=== PATIENT | male | born 1995 | race Caucasian/White ===

== ENCOUNTER 2016-07-30 21:34 | Emergency (ER) | payer BC ==
[~2016-07-30] VITALS: Ht 180.3 cm; Wt 144.5 kg
[~2016-07-30 21:34] MED LIST: BENZ100C70 PO; CETI10CA PO; CYCL-319 PO; IBUP-1542 PO; nyquil
[2016-07-30 21:55] VITALS: Ht 180.3 cm; Wt 144.5 kg
[2016-07-31] MEDS ORDERED: DIPHTH/TET/ACEL PERTUSS (ADULT) 0.5 ML VIAL IM* ONE
--- NOTE | 2016-07-31 00:36 | ERD ---
ER Documentation Chief Complaint Date/Time DATE: 07/31/16 TIME: 00:36 Chief Complaint Laceration Right index finger HPI 20-year-old male presents with chief complaint of right index finger laceration 6 hours. Patient states that he cut himself with a blade and a construction class. Reports diffuse bleeding after injury, but since then bleeding has subsided. He denies history of diabetes. Currently rates his pain a 3 out of 10 in severity. Has not taken any medication for pain relief. Does not recall his last tetanus vaccine. He denies loss of range of motion, numbness, and tingling. ROS All systems reviewed and are negative except as per history of present illness. Medications Home Meds Active Scripts Bacitracin* (Bacitracin Zinc Oint*) 28.35 Gm Oint, 1 APPLIC TOP BID for 5 Days, TUB APPLI TO Prov:Deepika Kern PA-C 07/31/16 Ibuprofen* (Motrin*) 600 Mg Tab, 600 MG PO Q6, #30 TAB Prov:Deepika Kern PA-C 07/31/16 Ibuprofen* (Motrin*) 600 Mg Tab, 600 MG PO Q6H Y for PAIN AND OR ELEVATED TEMP, #30 TAB Prov:BOB MILLER NP 05/08/16 Benzonatate* (Tessalon Perle*) 100 Mg Capsule, 100 MG PO Q8H Y for COUGH, #20 CAP Prov:BOB MILLER NP 05/08/16 Cetirizine Hcl* (Zyrtec*) 10 Mg Capsule, 10 MG PO DAILY, #30 TAB.CHEW Prov:BOB MILLER NP 05/08/16 Cyclobenzaprine Hcl* (Cyclobenzaprine Hcl*) 10 Mg Tablet, 10 MG PO TID, #15 TAB Prov:DORIAN KRISHNAN PA-C 02/08/16 Ibuprofen* (Motrin*) 600 Mg Tab, 600 MG PO Q6H Y for PAIN AND OR ELEVATED TEMP, #30 TAB Prov:DORIAN KRISHNAN PA-C 02/08/16 Reported Medications [nyquil] Unknown Strength No Conflict Check 05/08/16 Allergies Allergies: Coded Allergies: No Known Allergy (Verified , 03/06/14) PMhx/Soc Medical and Surgical Hx: pt denies Medical Hx History of Surgery: Yes (Appendectomy) Anesthesia Reaction: No Hx Neurological Disorder: No Hx Respiratory Disorders: No Hx Cardiac Disorders: No Hx Psychiatric Problems: No Hx Miscellaneous Medical Probl: No Hx Alcohol Use: Yes (socially) Hx Substance Use: No Hx Tobacco Use: No Smoking Status: Never smoker Physical Exam Vitals Vital Signs Date Time Temp Pulse Resp B/P Pulse Ox O2 Delivery O2 Flow Rate FiO2 07/30/16 21:55 97.9 83 20 118/76 99 Physical Exam GENERAL: Non-toxic. No apparent signs of distress. LUNGS: Clear to auscultation. No accessory muscle use. No wheezing, no crackles. No signs or symptoms of respiratory distress. HEART: Regular rate and rhythm. No murmurs, clicks, rubs or gallops. 2+ radial pulses bilaterally. ABDOMEN: Soft, nontender and nondistended. Bowel sounds positive. No rebound or guarding. No gross peritoneal signs. No Tony or McBurney point tenderness. No gross masses. EXTREMITIES: No peripheral cyanosis or edema. Full range of motion in all extremities and hands. Full range of motion of fingers. Equal flying teacher strength bilaterally.. Good capillary refill. NEURO: The patient moves all 4 extremities with 5/5 strength. Cranial nerves are grossly intact. Normal mental status for age. Good muscle tone. SKIN: 1 cm laceration over right fourth digit, over DIP palmar surface. No active bleeding, no surrounding erythema or ecchymosis. There is no apparent rash, petechiae, erythema or swelling. Good skin turgor. Results 24 hrs Current Medications Medications (Trade) Dose Ordered Sig/Verónica Route PRN Reason Start Time Stop Time Status Last Admin Dose Admin Diphtheria/ Tetanus/Acell Pertussis (Adacel) 0.5 ml ONCE ONCE IM* 07/31/16 00:00 07/31/16 00:01 DC 07/31/16 00:12 Procedures/MDM Patient presented with laceration over right index finger, since injury bleeding has subsided. The laceration appears superficial, and with no active bleeding I explained that suture repair is not warranted at this time. Steri- Strips were applied to the finger after diffuse irrigation with normal saline. Patient tolerated procedure well, without pain. Given wound care instructions. Advised to follow-up with his PCP in 1-2 days. Patient's bleeding was easily controlled in the department and there is no indication of anemia. No evidence of compartment syndrome, neurologic injury, vascular injury, open joint, tendon laceration, or foreign body. Patient is appropriate for outpatient follow up. 48 hour wound check. Scar minimization instructions given. Departure Diagnosis: Primary Impression: Laceration Condition: Good Deepika Kern PA-C Jul 31, 2016 00:36
[2016-07-31] MEDS ORDERED: BAC30OI TOP (00:37)
[2016-07-31] MEDS ORDERED: IBUP-1542 PO (00:37)
== END 2016-07-31 01:01 | disposition home or self-care (01) ==
LOC: FTE 21:34
DX: S61.210A Laceration without foreign body of right index finger without damage to nail, initial encounter (principal); W26.8XXA Contact with other sharp object(s), not elsewhere classified, initial encounter; Y92.9 Unspecified place or not applicable; Z23 Encounter for immunization
CPT/HCPCS: 90471; 90715

== ENCOUNTER 2017-11-05 09:38 | Emergency (ER) | END 2017-11-05 10:30 | disposition home or self-care (01) ==

== ENCOUNTER 2017-11-19 22:01 | Emergency (ER) | END 2017-11-19 23:47 | disposition home or self-care (01) ==

== ENCOUNTER 2018-03-12 23:01 | Emergency (ER) | END 2018-03-13 02:08 | disposition home or self-care (01) ==

== ENCOUNTER 2018-08-25 07:20 | Emergency (ER) | payer BC ==
[~2018-08-25] VITALS: Ht 177.8 cm; Wt 139.9 kg
[~2018-08-25 07:20] MED LIST changes: +ALBU8.5H8 INH; +AMOX1TAB10 PO; +AMOX500C2 PO; +AZIT250T PO; +BACI28.34 TOP; +BENZ-6 PO; -BENZ100C70 PO; -CYCL-319 PO; +CYCL10TA7 PO; +IBUP800T48 PO; +PRED20TA PO
[2018-08-25 07:21] VITALS: BP 130/73; PULSE 80; RESP 18; Ht 177.8 cm; Wt 139.9 kg
[2018-08-25] MEDS ORDERED: PROM6.2515 PO (07:36)
[2018-08-25] MEDS ORDERED: BENZ-6 PO (07:36)
[2018-08-25] MEDS ORDERED: NAPR-985 PO (07:36)
--- NOTE | 2018-08-25 08:27 | ERD ---
ER Documentation Chief Complaint Chief Complaint C/O SORE THROAT X 3 DAYS HPI 22-year-old male presenting with sore throat times 3 days. Patient took NyQuil 4 hours prior to my evaluation. He states he has a mild headache with a dry cough and a runny nose. Patient has had diffuse body aches. Denies any chest pain or shortness of breath. Denies any changes in urination or bowel move. Denies medical problems. NKDA. Surgical history is appendectomy. Social history denies ROS All systems reviewed and are negative except as per history of present illness. Medications Home Meds Active Scripts Benzonatate* (Tessalon Perle*) 100 Mg Capsule, 100 MG PO Q8H PRN for COUGH, #30 CAP Prov:SNEHA VALERO PA-C 08/25/18 Promethazine Hcl* (Promethazine Hcl* Syrup) 6.25 Mg/5 Ml Syrup, 6.25 MG PO Q6H PRN for COUGH, #100 ML Prov:SNEHA VALERO PA-C 08/25/18 Naproxen* (Naprosyn*) 500 Mg Tablet, 500 MG PO BID PRN for PAIN AND/OR INFLAMMATION, #30 TAB Prov:SNEHA VALERO PA-C 08/25/18 Ibuprofen* (Motrin*) 600 Mg Tab, 600 MG PO Q6H PRN for PAIN AND OR ELEVATED TEMP, #30 TAB Prov:BOB MILLER NP 03/13/18 Benzonatate* (Tessalon Perle*) 100 Mg Capsule, 100 MG PO Q8H PRN for COUGH, #20 CAP Prov:BOB MILLER NP 03/13/18 Azithromycin* (Zithromax*) 250 Mg Tablet, 250 MG PO .ShivamPACK DIRECTED, #6 TAB TAKE 500 MG (2 TABS) THE FIRST DAY THEN 250 MG (1 TAB) DAYS 2-5 Prov:BOB MILLER NP 03/13/18 Ibuprofen* (Motrin*) 600 Mg Tab, 600 MG PO Q6, #30 TAB Prov:FL[place] MARIO PA-C 11/19/17 Amoxicillin* (Amoxicillin*) 500 Mg Cap, 500 MG PO TID for 10 Days, CAP Prov:FLOR[place] MARIO PA-C 11/19/17 Albuterol Sulfate* (Proair HFA*) 8.5 Gm Hfa.aer.ad, 2 PUFF INH Q4H PRN for WHEEZING AND SOB, #1 INHALER Prov:DIANA KNOX 11/05/17 Benzonatate* (Tessalon Perle*) 100 Mg Capsule, 100 MG PO Q8H PRN for COUGH, #20 CAP Prov:DIANA KNOX 11/05/17 Prednisone* (Prednisone*) 20 Mg Tab, 60 MG PO DAILY for 5 Days, TAB Prov:DIANA KNOX 11/05/17 Ibuprofen* (Motrin*) 800 Mg Tab, 800 MG PO Q6H PRN for PAIN AND OR ELEVATED TEMP, #30 TAB Prov:DIANA KNOX 11/05/17 Amoxicillin/Potassium Clav (Amox-Clav 875-125 mg Tablet) 875-125 mg Tab, 1 TAB PO BID for 10 Days, #20 TAB Prov:DIANA KNOX 11/05/17 Bacitracin* (Bacitracin Zinc Oint*) 28.35 Gm Oint, 1 APPLIC TOP BID for 5 Days, TUB APPLI TO Prov:Deepika Kern PA-C 07/31/16 Ibuprofen* (Motrin*) 600 Mg Tab, 600 MG PO Q6, #30 TAB Prov:Deepika Kern PA-C 07/31/16 Ibuprofen* (Motrin*) 600 Mg Tab, 600 MG PO Q6H PRN for PAIN AND OR ELEVATED TEMP, #30 TAB Prov:BOB MILLER NP 05/08/16 Benzonatate* (Tessalon Perle*) 100 Mg Capsule, 100 MG PO Q8H PRN for COUGH, #20 CAP Prov:BOB MILLER NP 05/08/16 Cetirizine Hcl* (Zyrtec*) 10 Mg Capsule, 10 MG PO DAILY, #30 TAB.CHEW Prov:BOB MILLER NP 05/08/16 Cyclobenzaprine Hcl* (Cyclobenzaprine Hcl*) 10 Mg Tablet, 10 MG PO TID, #15 TAB Prov:DORIAN KRISHNAN-C 02/08/16 Ibuprofen* (Motrin*) 600 Mg Tab, 600 MG PO Q6H PRN for PAIN AND OR ELEVATED TEMP, #30 TAB Prov:ARIELLADORIAN Loving PA-C 02/08/16 Reported Medications [nyquil] Unknown Strength No Conflict Check 05/08/16 Allergies Allergies: Coded Allergies: No Known Allergy (Verified , 11/05/17) PMhx/Soc History of Surgery: Yes (Appendectomy) Anesthesia Reaction: No Hx Neurological Disorder: No Hx Respiratory Disorders: No Hx Cardiac Disorders: No Hx Psychiatric Problems: No Hx Miscellaneous Medical Probl: No Hx Alcohol Use: No Hx Substance Use: Yes (MARIJUANA) Hx Tobacco Use: No Smoking Status: Former smoker FmHx Family History: No diabetes, No coronary disease, No other Physical Exam Vitals Vital Signs Date Temp Pulse Resp B/P (MAP) Pulse Ox O2 O2 Flow FiO2 Time Delivery Rate 08/25/18 97.0 80 18 130/73 99 07:21 (92) Physical Exam GENERAL: The patient is well-appearing, well-nourished, in no acute distress HEENT: Atraumatic. Conjunctivae are pink. Pupils equal, round, and reactive to light. There is no scleral icterus. Tympanic membranes clear bilaterally. Oropharynx clear. NECK: C-spine is soft and supple. There is no meningismus. There is no cervical lymphadenopathy. CHEST: Clear to auscultation bilaterally. There are no rales, wheezes or rhonchi. HEART: Regular rate and rhythm. No murmurs, clicks, rubs or gallops. Procedures/MDM MDM: 22-year-old male presenting with sore throat. Exam is non-concerning. Patient likely has viral pharyngitis. Patient is discharged with supportive medications. I have low suspicion for meningitis or sepsis. I have low suspicion for pneumonia. Patient is told if symptoms change or worsen to return immediately to the ER. All questions answered at discharge Departure Diagnosis: Primary Impression: Sore throat Condition: Stable Patient Instructions: Self-Care for Sore Throats Referrals: COMMUNITY CLINICS YOU HAVE RECEIVED A MEDICAL SCREENING EXAM AND THE RESULTS INDICATE THAT YOU DO NOT HAVE A CONDITION THAT REQUIRES URGENT TREATMENT IN THE EMERGENCY DEPARTMENT. FURTHER EVALUATION AND TREATMENT OF YOUR CONDITION CAN WAIT UNTIL YOU ARE SEEN IN YOUR DOCTORS OFFICE WITHIN THE NEXT 1-2 DAYS. IT IS YOUR RESPONSIBILITY TO MAKE AN APPOINTMENT FOR FOLOW-UP CARE. IF YOU HAVE A PRIMARY DOCTOR --you should call your primary doctor and schedule an appointment IF YOU DO NOT HAVE A PRIMARY DOCTOR YOU CAN CALL OUR PHYSICIAN REFERRAL HOTLINE AT IF YOU CAN NOT AFFORD TO SEE A PHYSICIAN YOU CAN CHOSE FROM THE FOLLOWING [facility] [address] [facility] [address] [facility] (RCDb) [facility]. [facility] [place] [address] [facility] [address] [facility] [address] [facility]. [facility]. [address] Additional Instructions: FOLLOW UP WITH YOUR PRIMARY CARE PHYSICIAN TOMORROW.Return to this facility if you are not improving as expected. SNEHA VALERO PA-C Aug 25, 2018 08:27
== END 2018-08-25 08:23 | disposition home or self-care (01) ==
LOC: FTE 07:20
DX: J02.9 Acute pharyngitis, unspecified (principal); Z87.891 Personal history of nicotine dependence
CPT/HCPCS: 99283

== ENCOUNTER 2018-09-30 08:34 | Emergency (ER) | payer BC ==
[~2018-09-30] VITALS: Ht 180.3 cm; Wt 150.0 kg
[~2018-09-30 08:34] MED LIST changes: +NAPR-985 PO; +PROM6.2515 PO
[2018-09-30 08:36] VITALS: BP 138/72; PULSE 90; RESP 18; Ht 180.3 cm; Wt 150.0 kg
--- NOTE | 2018-09-30 09:28 | ERD ---
ER Documentation Chief Complaint Chief Complaint METAL OBJECT FEEL ON TOP HEAD ,HAS ABRASION, WANTS DT HPI 3-year-old male presenting with abrasion to the top of his head. 2 days ago patient had a labile burst on his head and he sustained a small abrasion. Patient is not up-to-date on his tetanus and is requesting tetanus at this time. He denies any vomiting. Denies any headaches. Denies any bleeding at the site. Denies medical problems. NKDA. Surgical history denies. Social history denies ROS All systems reviewed and are negative except as per history of present illness. Medications Home Meds Active Scripts Benzonatate* (Tessalon Perle*) 100 Mg Capsule, 100 MG PO Q8H PRN for COUGH, #30 CAP Prov:SNEHA VALERO PA-C 08/25/18 Promethazine Hcl* (Promethazine Hcl* Syrup) 6.25 Mg/5 Ml Syrup, 6.25 MG PO Q6H PRN for COUGH, #100 ML Prov:SNEHA VALERO PA-C 08/25/18 Naproxen* (Naprosyn*) 500 Mg Tablet, 500 MG PO BID PRN for PAIN AND/OR INFLAMMATION, #30 TAB Prov:SNEHA VALERO PA-C 08/25/18 Ibuprofen* (Motrin*) 600 Mg Tab, 600 MG PO Q6H PRN for PAIN AND OR ELEVATED TEMP, #30 TAB Prov:BOB MILLER NP 03/13/18 Benzonatate* (Tessalon Perle*) 100 Mg Capsule, 100 MG PO Q8H PRN for COUGH, #20 CAP Prov:BOB MILLER NP 03/13/18 Azithromycin* (Zithromax*) 250 Mg Tablet, 250 MG PO .ShivamPACK DIRECTED, #6 TAB TAKE 500 MG (2 TABS) THE FIRST DAY THEN 250 MG (1 TAB) DAYS 2-5 Prov:BOB MILLER NP 03/13/18 Ibuprofen* (Motrin*) 600 Mg Tab, 600 MG PO Q6, #30 TAB Prov:FLOR[place] MARIO PA-C 11/19/17 Amoxicillin* (Amoxicillin*) 500 Mg Cap, 500 MG PO TID for 10 Days, CAP Prov:FL[place] MARIOC 11/19/17 Albuterol Sulfate* (Proair HFA*) 8.5 Gm Hfa.aer.ad, 2 PUFF INH Q4H PRN for WHEEZING AND SOB, #1 INHALER Prov:DIANA KNOX 11/05/17 Benzonatate* (Tessalon Perle*) 100 Mg Capsule, 100 MG PO Q8H PRN for COUGH, #20 CAP Prov:DIANA KNOX 11/05/17 Prednisone* (Prednisone*) 20 Mg Tab, 60 MG PO DAILY for 5 Days, TAB Prov:DIANA KNOX 11/05/17 Ibuprofen* (Motrin*) 800 Mg Tab, 800 MG PO Q6H PRN for PAIN AND OR ELEVATED TEMP, #30 TAB Prov:DIANA KNOX 11/05/17 Amoxicillin/Potassium Clav (Amox-Clav 875-125 mg Tablet) 875-125 mg Tab, 1 TAB PO BID for 10 Days, #20 TAB Prov:DIANA KNOX 11/05/17 Bacitracin* (Bacitracin Zinc Oint*) 28.35 Gm Oint, 1 APPLIC TOP BID for 5 Days, TUB APPLI TO Prov:Deepika Kern PA-C 07/31/16 Ibuprofen* (Motrin*) 600 Mg Tab, 600 MG PO Q6, #30 TAB Prov:Deepika Kern PA-C 07/31/16 Ibuprofen* (Motrin*) 600 Mg Tab, 600 MG PO Q6H PRN for PAIN AND OR ELEVATED TEMP, #30 TAB Prov:BOB MILLER NP 05/08/16 Benzonatate* (Tessalon Perle*) 100 Mg Capsule, 100 MG PO Q8H PRN for COUGH, #20 CAP Prov:BOB MILLER NP 05/08/16 Cetirizine Hcl* (Zyrtec*) 10 Mg Capsule, 10 MG PO DAILY, #30 TAB.CHEW Prov:BOB MILLER NP 05/08/16 Cyclobenzaprine Hcl* (Cyclobenzaprine Hcl*) 10 Mg Tablet, 10 MG PO TID, #15 TAB Prov:BLAKE KRISHNANSHA N. PA-C 02/08/16 Ibuprofen* (Motrin*) 600 Mg Tab, 600 MG PO Q6H PRN for PAIN AND OR ELEVATED TEMP, #30 TAB Prov:DORIAN KRISHNAN Inder GARNER 02/08/16 Reported Medications [nyquil] Unknown Strength No Conflict Check 05/08/16 Allergies Allergies: Coded Allergies: No Known Allergy (Verified , 11/05/17) PMhx/Soc Medical and Surgical Hx: pt denies Medical Hx, pt denies Surgical Hx History of Surgery: Yes (Appendectomy) Anesthesia Reaction: No Hx Neurological Disorder: No Hx Respiratory Disorders: No Hx Cardiac Disorders: No Hx Psychiatric Problems: No Hx Miscellaneous Medical Probl: No Hx Alcohol Use: No Hx Substance Use: No Hx Tobacco Use: No Smoking Status: Never smoker FmHx Family History: No diabetes, No coronary disease, No other Physical Exam Vitals Vital Signs Date Temp Pulse Resp B/P (MAP) Pulse Ox O2 O2 Flow FiO2 Time Delivery Rate 09/30/18 98.1 90 18 138/72 99 08:36 (94) Physical Exam GENERAL: The patient is well-appearing, well-nourished, in no acute distress HEENT: Atraumatic. Conjunctivae are pink. Pupils equal, round, and reactive to light. There is no scleral icterus. Tympanic membranes clear bilaterally. Oropharynx clear. CHEST: Clear to auscultation bilaterally. There are no rales, wheezes or rhonchi. HEART: Regular rate and rhythm. No murmurs, clicks, rubs or gallops. No S3 or S4. NEUROLOGIC: Alert and oriented. Cranial nerves II through XII intact. Motor strength in all 4 extremities with 5 out of 5 strength. Sensation grossly intact. Normal speech and gait. Babinski negative. DTR 2+ throughout. SKIN: Healed abrasion noted to the top of the head. No surrounding erythema. Results 24 hrs Current Medications Medications Dose Sig/Verónica Start Time Status Last (Trade) Ordered Route PRN Stop Time Admin Dose Reason Admin Diphtheria/ 0.5 ml ONCE ONCE 09/30/18 09/30/18 Tetanus/Acell IM* 09:30 09:20 Pertussis 09/30/18 09:31 (Adacel) Procedures/MDM ER course: Tetanus given in ED. MDM: 23-year-old male presenting with abrasions that is healed. Patient is requesting tetanus shot. I have low suspicion for cellulitic infection. I have low suspicion for neuro deficit. Patient is discharged with strict told to follow-up with primary care within 1 to 2 days for close evaluation. Patient is told symptoms change or worsen to return immediately to the ER. All questions answered at discharge Departure Diagnosis: Primary Impression: Abrasion Condition: Stable Patient Instructions: Abrasion Referrals: [facility] CLINICS YOU HAVE RECEIVED A MEDICAL SCREENING EXAM AND THE RESULTS INDICATE THAT YOU DO NOT HAVE A CONDITION THAT REQUIRES URGENT TREATMENT IN THE EMERGENCY DEPARTMENT. FURTHER EVALUATION AND TREATMENT OF YOUR CONDITION CAN WAIT UNTIL YOU ARE SEEN IN YOUR DOCTORS OFFICE WITHIN THE NEXT 1-2 DAYS. IT IS YOUR RESPONSIBILITY TO MAKE AN APPOINTMENT FOR FOLOW-UP CARE. IF YOU HAVE A PRIMARY DOCTOR --you should call your primary doctor and schedule an appointment IF YOU DO NOT HAVE A PRIMARY DOCTOR YOU CAN CALL OUR PHYSICIAN REFERRAL HOTLINE AT IF YOU CAN NOT AFFORD TO SEE A PHYSICIAN YOU CAN CHOSE FROM THE FOLLOWING [facility] CLINICS [facility] [address] [facility]. [facility] [address] [facility] [address] [facility] [facility] [address] [facility] [address] [facility]. [address] Additional Instructions: FOLLOW UP WITH YOUR PRIMARY CARE PHYSICIAN TOMORROW.Return to this facility if you are not improving as expected. SNEHA VALERO PA-C September 30, 2018 09:28
[2018-09-30] MEDS ORDERED: DIPHTH/TET/ACEL PERTUSS (ADULT) 0.5 ML VIAL IM* ONE (09:30)
== END 2018-09-30 10:11 | disposition home or self-care (01) ==
LOC: FTE 08:34
DX: S00.81XA Abrasion of other part of head, initial encounter (principal); W20.8XXA Other cause of strike by thrown, projected or falling object, initial encounter; Y92.89 Other specified places as the place of occurrence of the external cause; Z23 Encounter for immunization
CPT/HCPCS: 90471; 90715

== ENCOUNTER 2018-12-05 09:37 | Emergency (ER) | payer BC ==
[~2018-12-05] VITALS: Ht 180.3 cm; Wt 149.0 kg
[~2018-12-05 09:37] MED LIST changes: +ACET500C5 PO; +PENI500T PO
[2018-12-05 09:38] VITALS: BP 118/75; PULSE 92; RESP 22; Ht 180.3 cm; Wt 149.0 kg
[2018-12-05] MEDS ORDERED: ACETAMINOPHEN 500 MG TAB PO STA (09:51)
[2018-12-05] MEDS ORDERED: IBUPROFEN 800 MG TAB PO ONE (10:00)
--- NOTE | 2018-12-05 10:52 | ERD ---
ER Documentation Chief Complaint Chief Complaint SORE THROAT, COUGH, BODY PAINS HPI 23-year-old male presenting with a sore throat body aches and fever x3 days. Patient states he feels mildly dizzy and has had one episode of vomiting with nausea. Has diffuse body aches and took NyQuil last night with no medications today. Has a dry cough but no runny nose. Denies diarrhea. Denies medical problems. NKDA. Surgical history appendectomy. Social history smokes marijuana occasionally ROS All systems reviewed and are negative except as per history of present illness. Medications Home Meds Active Scripts Acetaminophen* (Tylophen*) 500 Mg Capsule, 1 CAP PO Q6H PRN for PAIN AND OR ELEVATED TEMP, #20 CAP Prov:SNEHA VALERO PA-C 12/05/18 Ibuprofen* (Motrin*) 800 Mg Tab, 800 MG PO Q6, #30 TAB Prov:SNEHA VALERO PA-C 12/05/18 Penicillin V Potassium* (Penicillin V K*) 500 Mg Tab, 500 MG PO BID for 7 Days, TAB Prov:SNEHA VALERO PA-C 12/05/18 Benzonatate* (Tessalon Perle*) 100 Mg Capsule, 100 MG PO Q8H PRN for COUGH, #30 CAP Prov:SNEHA VALERO PA-C 08/25/18 Promethazine Hcl* (Promethazine Hcl* Syrup) 6.25 Mg/5 Ml Syrup, 6.25 MG PO Q6H PRN for COUGH, #100 ML Prov:SNEHA VALERO PA-C 08/25/18 Naproxen* (Naprosyn*) 500 Mg Tablet, 500 MG PO BID PRN for PAIN AND/OR INFLAMMATION, #30 TAB Prov:SNEHA VALERO PA-C 08/25/18 Ibuprofen* (Motrin*) 600 Mg Tab, 600 MG PO Q6H PRN for PAIN AND OR ELEVATED TEMP, #30 TAB Prov:BOB MILLER NP 03/13/18 Benzonatate* (Tessalon Perle*) 100 Mg Capsule, 100 MG PO Q8H PRN for COUGH, #20 CAP Prov:BOB MILLER NP 03/13/18 Azithromycin* (Zithromax*) 250 Mg Tablet, 250 MG PO .BARAK DIRECTED, #6 TAB TAKE 500 MG (2 TABS) THE FIRST DAY THEN 250 MG (1 TAB) DAYS 2-5 Prov:BOB MILLER NP 03/13/18 Ibuprofen* (Motrin*) 600 Mg Tab, 600 MG PO Q6, #30 TAB Prov:FLOR[place] MARIO PA-C 11/19/17 Amoxicillin* (Amoxicillin*) 500 Mg Cap, 500 MG PO TID for 10 Days, CAP Prov:[place] MARIOC 11/19/17 Albuterol Sulfate* (Proair HFA*) 8.5 Gm Hfa.aer.ad, 2 PUFF INH Q4H PRN for WHEEZING AND SOB, #1 INHALER Prov:ABILIODIANA F 11/05/17 Benzonatate* (Tessalon Perle*) 100 Mg Capsule, 100 MG PO Q8H PRN for COUGH, #20 CAP Prov:DIANA KNOX F 11/05/17 Prednisone* (Prednisone*) 20 Mg Tab, 60 MG PO DAILY for 5 Days, TAB Prov:DIANA KNOX F 11/05/17 Ibuprofen* (Motrin*) 800 Mg Tab, 800 MG PO Q6H PRN for PAIN AND OR ELEVATED TEMP, #30 TAB Prov:ZAYRAKISHANDIANA F 11/05/17 Amoxicillin/Potassium Clav (Amox-Clav 875-125 mg Tablet) 875-125 mg Tab, 1 TAB PO BID for 10 Days, #20 TAB Prov:ABILIOALONDRABRANDON F 11/05/17 Bacitracin* (Bacitracin Zinc Oint*) 28.35 Gm Oint, 1 APPLIC TOP BID for 5 Days, TUB APPLI TO Prov:Deepika Kern PA-C 07/31/16 Ibuprofen* (Motrin*) 600 Mg Tab, 600 MG PO Q6, #30 TAB Prov:Deepika Kern PA-C 07/31/16 Ibuprofen* (Motrin*) 600 Mg Tab, 600 MG PO Q6H PRN for PAIN AND OR ELEVATED TEMP, #30 TAB Prov:BOB MILLER NP 05/08/16 Benzonatate* (Tessalon Perle*) 100 Mg Capsule, 100 MG PO Q8H PRN for COUGH, #20 CAP Prov:ANGELABOB FOUNDRY HAND 05/08/16 Cetirizine Hcl* (Zyrtec*) 10 Mg Capsule, 10 MG PO DAILY, #30 TAB.CHEW Prov:ANGELABOB FOUNDRY HAND 05/08/16 Cyclobenzaprine Hcl* (Cyclobenzaprine Hcl*) 10 Mg Tablet, 10 MG PO TID, #15 TAB Prov:DORIAN KRISHNAN PA-C 02/08/16 Ibuprofen* (Motrin*) 600 Mg Tab, 600 MG PO Q6H PRN for PAIN AND OR ELEVATED TEMP, #30 TAB Prov:DORIAN KRISHNAN PA-C 02/08/16 Reported Medications [nyquil] Unknown Strength No Conflict Check 05/08/16 Allergies Allergies: Coded Allergies: No Known Allergy (Verified , 12/05/18) PMhx/Soc History of Surgery: Yes (Appendectomy) Anesthesia Reaction: No Hx Neurological Disorder: No Hx Respiratory Disorders: No Hx Cardiac Disorders: No Hx Psychiatric Problems: No Hx Miscellaneous Medical Probl: No Hx Alcohol Use: No Hx Substance Use: Yes (marijuana) Hx Tobacco Use: No Smoking Status: Never smoker FmHx Family History: No diabetes, No coronary disease, No other Physical Exam Vitals Vital Signs Date Temp Pulse Resp B/P (MAP) Pulse Ox O2 O2 Flow FiO2 Time Delivery Rate 12/05/18 100.8 92 22 118/75 100 09:38 (89) Physical Exam GENERAL: The patient is well-appearing, well-nourished, in no acute distress HEENT: Atraumatic. Conjunctivae are pink. Pupils equal, round, and reactive to light. There is no scleral icterus. Tympanic membranes clear bilaterally. Oropharynx erythematous with exudate noted bilaterally. NECK: C-spine is soft and supple. There is no meningismus. There is no cervical lymphadenopathy. CHEST: Clear to auscultation bilaterally. There are no rales, wheezes or rhonchi. HEART: Regular rate and rhythm. No murmurs, clicks, rubs or gallops. Results 24 hrs Laboratory Tests Test 12/05/18 09:56 Monoscreen Negative Current Medications Medications Dose Sig/Verónica Start Time Status Last (Trade) Ordered Route PRN Stop Time Admin Dose Reason Admin Ibuprofen 800 mg ONCE ONCE 12/05/18 DC 12/05/18 (Motrin) PO 10:00 10:01 12/05/18 10:01 1,000 mg ONCE STAT 12/05/18 DC 12/05/18 Acetaminophen PO 09:51 10:01 (Tylenol 12/05/18 09:52 Tab) Procedures/MDM ER course: Shelby negative, flu negative, strep positive. Ibuprofen and Tylenol given in ED MDM: 23-year-old male presenting with sore throat. I have low suspicion for peritonsillar retropharyngeal abscess. I have low suspicion for pneumonia. I have low suspicion for meningitis or sepsis. Patient is discharged with medications and told to follow-up with primary care within 1 to 2 days for close evaluation. Patient is told if symptoms change or worsen to return immediately to the ER. All questions answered at discharge Departure Diagnosis: Primary Impression: Strep pharyngitis Condition: Stable Patient Instructions: Strep Throat Referrals: [facility]ICS YOU HAVE RECEIVED A MEDICAL SCREENING EXAM AND THE RESULTS INDICATE THAT YOU DO NOT HAVE A CONDITION THAT REQUIRES URGENT TREATMENT IN THE EMERGENCY DEPARTMENT. FURTHER EVALUATION AND TREATMENT OF YOUR CONDITION CAN WAIT UNTIL YOU ARE SEEN IN YOUR DOCTORS OFFICE WITHIN THE NEXT 1-2 DAYS. IT IS YOUR RESPONSIBILITY TO MAKE AN APPOINTMENT FOR FOLOW-UP CARE. IF YOU HAVE A PRIMARY DOCTOR --you should call your primary doctor and schedule an appointment IF YOU DO NOT HAVE A PRIMARY DOCTOR YOU CAN CALL OUR PHYSICIAN REFERRAL HOTLINE AT IF YOU CAN NOT AFFORD TO SEE A PHYSICIAN YOU CAN CHOSE FROM THE FOLLOWING [facility] [address] [facility] [address] [facility]. [facility] [address] [facility] [facility] [address] [facility] [address] [facility]. [address] [place] Additional Instructions: FOLLOW UP WITH YOUR PRIMARY CARE PHYSICIAN TOMORROW.Return to this facility if you are not improving as expected. SNEHA VALERO PA-C Dec 05, 2018 10:52
== END 2018-12-05 11:02 | disposition home or self-care (01) ==
LOC: FTE 09:37
DX: J02.0 Streptococcal pharyngitis (principal)
CPT/HCPCS: 86308; 87400; 87880; 99283

== ENCOUNTER 2018-12-06 21:21 | Emergency (ER) | payer BC ==
[~2018-12-06] VITALS: Ht 177.8 cm; Wt 148.6 kg
[2018-12-06 21:23] VITALS: Ht 177.8 cm; Wt 148.6 kg
[2018-12-06] MEDS ORDERED: SOD CHLORIDE 0.9% 1,000 ML IV STA (22:03)
[2018-12-06] MEDS ORDERED: KETOROLAC 15 MG INJ IV STA (22:03)
--- NOTE | 2018-12-06 22:06 | ERD ---
ER Documentation Chief Complaint Chief Complaint FEVER, STARTED FEELING DIZZY; ON ATBs-PCN for Strep Throat (Rx yesterday) HPI 23-year-old male presents to the ED with a 3-day history of fevers and odynophagia. He was seen in the ED yesterday diagnosed with strep pharyngitis and discharged on penicillin. Patient states he has not improved, has ongoing odynophagia, high fevers , feels dizzy and lightheaded. Denies any dysphasia, vocal changes or trismus. No shortness of breath or cough. No headache or neck pain. No abdominal pain, nausea or vomiting. ROS All systems reviewed and are negative except as per history of present illness. Medications Home Meds Active Scripts Acetaminophen* (Tylophen*) 500 Mg Capsule, 1 CAP PO Q6H PRN for PAIN AND OR ELEVATED TEMP, #20 CAP Prov:SNEHA VALERO PA-C 12/05/18 Ibuprofen* (Motrin*) 800 Mg Tab, 800 MG PO Q6, #30 TAB Prov:SNEHA VALERO PA-C 12/05/18 Penicillin V Potassium* (Penicillin V K*) 500 Mg Tab, 500 MG PO BID for 7 Days, TAB Prov:SNEHA VALERO PA-C 12/05/18 Benzonatate* (Tessalon Perle*) 100 Mg Capsule, 100 MG PO Q8H PRN for COUGH, #30 CAP Prov:SNEHA VALERO PA-C 08/25/18 Promethazine Hcl* (Promethazine Hcl* Syrup) 6.25 Mg/5 Ml Syrup, 6.25 MG PO Q6H PRN for COUGH, #100 ML Prov:SNEHA VALERO PA-C 08/25/18 Naproxen* (Naprosyn*) 500 Mg Tablet, 500 MG PO BID PRN for PAIN AND/OR INFLAMMATION, #30 TAB Prov:SNEHA VALERO PA-C 08/25/18 Ibuprofen* (Motrin*) 600 Mg Tab, 600 MG PO Q6H PRN for PAIN AND OR ELEVATED TEMP, #30 TAB Prov:BOB MILLER NP 03/13/18 Benzonatate* (Tessalon Perle*) 100 Mg Capsule, 100 MG PO Q8H PRN for COUGH, #20 CAP Prov:BOB MILLER BUSINESS PERFORMANCE MANAGER 03/13/18 Azithromycin* (Zithromax*) 250 Mg Tablet, 250 MG PO .VIKKICK DIRECTED, #6 TAB TAKE 500 MG (2 TABS) THE FIRST DAY THEN 250 MG (1 TAB) DAYS 2-5 Prov:BOB MILLER BUSINESS PERFORMANCE MANAGER 03/13/18 Ibuprofen* (Motrin*) 600 Mg Tab, 600 MG PO Q6, #30 TAB Prov:[place] MARIO PA-C 11/19/17 Amoxicillin* (Amoxicillin*) 500 Mg Cap, 500 MG PO TID for 10 Days, CAP Prov:[place] MARIO PA-C 11/19/17 Albuterol Sulfate* (Proair HFA*) 8.5 Gm Hfa.aer.ad, 2 PUFF INH Q4H PRN for WHEEZING AND SOB, #1 INHALER Prov:DIANA KNOX 11/05/17 Benzonatate* (Tessalon Perle*) 100 Mg Capsule, 100 MG PO Q8H PRN for COUGH, #20 CAP Prov:DIANA KNOX 11/05/17 Prednisone* (Prednisone*) 20 Mg Tab, 60 MG PO DAILY for 5 Days, TAB Prov:DIANA KNOX 11/05/17 Ibuprofen* (Motrin*) 800 Mg Tab, 800 MG PO Q6H PRN for PAIN AND OR ELEVATED TEMP, #30 TAB Prov:DIANA KNOX 11/05/17 Amoxicillin/Potassium Clav (Amox-Clav 875-125 mg Tablet) 875-125 mg Tab, 1 TAB PO BID for 10 Days, #20 TAB Prov:DIANA KNOX F 11/05/17 Bacitracin* (Bacitracin Zinc Oint*) 28.35 Gm Oint, 1 APPLIC TOP BID for 5 Days, TUB APPLI TO Prov:Deepika Kern PA-C 07/31/16 Ibuprofen* (Motrin*) 600 Mg Tab, 600 MG PO Q6, #30 TAB Prov:Deepika Kern PA-C 07/31/16 Ibuprofen* (Motrin*) 600 Mg Tab, 600 MG PO Q6H PRN for PAIN AND OR ELEVATED TEMP, #30 TAB Prov:ANGELABOB BUSINESS PERFORMANCE MANAGER 05/08/16 Benzonatate* (Tessalon Perle*) 100 Mg Capsule, 100 MG PO Q8H PRN for COUGH, #20 CAP Prov:ANGELABOBSohail Brown. BUSINESS PERFORMANCE MANAGER 05/08/16 Cetirizine Hcl* (Zyrtec*) 10 Mg Capsule, 10 MG PO DAILY, #30 TAB.CHEW Prov:BOB MILLER BUSINESS PERFORMANCE MANAGER 05/08/16 Cyclobenzaprine Hcl* (Cyclobenzaprine Hcl*) 10 Mg Tablet, 10 MG PO TID, #15 TAB Prov:DORIAN KRISHNAN PA-C 02/08/16 Ibuprofen* (Motrin*) 600 Mg Tab, 600 MG PO Q6H PRN for PAIN AND OR ELEVATED TEMP, #30 TAB Prov:DORIAN KRISHNAN PA-C 02/08/16 Reported Medications [nyquil] Unknown Strength No Conflict Check 05/08/16 Allergies Allergies: Coded Allergies: No Known Allergy (Verified , 12/05/18) PMhx/Soc Reviewed History of Surgery: Yes (Appendectomy) Anesthesia Reaction: No Hx Neurological Disorder: No Hx Respiratory Disorders: No Hx Cardiac Disorders: No Hx Psychiatric Problems: No Hx Miscellaneous Medical Probl: Yes (STREP THROAT) Hx Alcohol Use: No Hx Substance Use: Yes (marijuana) Hx Tobacco Use: No Smoking Status: Never smoker FmHx No family history relevant to presenting complaint Physical Exam Vitals Vital Signs Date Temp Pulse Resp B/P (MAP) Pulse Ox O2 O2 Flow FiO2 Time Delivery Rate 12/06/18 92 18 120/61 98 23:21 (80) 12/06/18 102.0 124 20 127/75 97 21:23 (92) Physical Exam Const: Moderate distress Head: Atraumatic Eyes: Normal Conjunctiva ENT: Pharynx is injected with purulent exudate. Uvula is midline. No trismus. Tolerating his own secretions. No drooling. Neck: Full range of motion. No meningismus. Mild, bilateral, tender lymphadenopathy. No stridor. Resp: Breath sounds are equal and clear to auscultation bilaterally. No wheezing Cardio: Tachycardic. Regular rate and rhythm, no murmurs Abd: Soft, obese, non tender, non distended. Normal bowel sounds Skin: No petechiae or rashes Back: No midline or flank tenderness Ext: No cyanosis, or edema Neur: Awake and alert. No focal deficit Psych: Normal Mood and Affect Results 24 hrs Laboratory Tests Test 12/06/18 21:50 POC Venous Lactate 1.2 mmol/L Current Medications Medications Dose Sig/Verónica Start Time Status Last (Trade) Ordered Route PRN Stop Time Admin Dose Reason Admin Sodium 1,000 ml @ Q1H STAT 12/06/18 DC 12/06/18 Chloride 1,000 mls/hr IV 22:03 22:21 12/06/18 23:02 8 mg ONCE ONCE 12/06/18 DC 12/06/18 Dexamethasone IV 22:30 22:21 (Decadron) 12/06/18 22:31 Ketorolac 15 mg ONCE STAT 12/06/18 DC 12/06/18 Tromethamine IV 22:03 22:22 (Toradol) 12/06/18 22:06 Penicillin 1,200,000 ONCE ONCE 12/06/18 DC 12/06/18 G units IM 22:30 22:48 Benzathine 12/06/18 22:31 (Bicillin La) Procedures/MDM DOCUMENTS REVIEWED: ED nurse, prior records including yesterday's visit and culture results. MEDICAL DECISION MAKIN-year-old male presents to the ED with a 3-day history of fevers and odynophagia. Patient presents with odynophagia secondary to culture positive strep pharyngitis. He was seen in the ED yesterday and treated with oral penicillin with no improvement. Multiple criteria for systemic inflammatory response syndrome including fever and tachycardia but lactate is 1.2 and there is no criteria for severe sepsis, septic shock or bundle therapy. Patient responded dramatically to intravenous hydration, ketorolac and Decadron. Benzathine penicillin 1,200,000 units IM given. Patient has no signs of peritonsillar abscess, retropharyngeal/parapharyngeal abscess and also considered CT of the neck is not indicated. Stable for discharge with precautionary instructions, appropriate analgesics and outpatient follow-up as counseled. Counseled patient and family regarding diagnostic workup, diagnosis and need for followup. Understands to return to ED if symptoms recur, worsen or any other concerns. Departure Diagnosis: Primary Impression: Sore throat Additional Impression: Acute streptococcal pharyngitis Condition: Stable (Improved) SHAW CASAREZ MD Dec 06, 2018 22:06
[2018-12-06] MEDS ORDERED: PENICILLIN G BENZ 1.2 MIL UNIT SYG IM ONE (22:30)
[2018-12-06] MEDS ORDERED: DEXAMETHASONE 10 MG/ML 1 ML INJ IV ONE (22:30)
[2018-12-07 01:25] VITALS: BP 113/64; PULSE 82; RESP 20
== END 2018-12-07 01:28 | disposition home or self-care (01) ==
LOC: E/R 21:21
DX: J02.0 Streptococcal pharyngitis (principal)
CPT/HCPCS: 36415; 83605; 96372; 96374; 96375; 99284; J0561; J1100; J1885; J7030